=== PATIENT | male | born 1965 | race Caucasian/White ===

== ENCOUNTER 2024-06-23 11:05 | Emergency (ER) | payer BC ==
[2024-06-23 11:40] VITALS: RESP 18
--- NOTE | 2024-06-23 14:23 | ED ---
Skin/Abscess/FB HPI - General Chief complaint: Skin/Abscess/Foreign Body Stated complaint: Hemorrhoidal complications Time Seen by Provider: 06/23/24 14:00 Source: patient, RN notes reviewed Mode of arrival: ambulatory Limitations: no limitations - History of Present Illness Initial comments: 58-year-old male with history of hemorrhoids presenting for hemorrhoid x 4 days. States he is having painful bowel movements with bright red blood. He has been trying H prep with little relief. States the hemorrhoid prolapses but he is able to reduce it manually. Does not take any medications. Last bowel movement was this morning - Related Data Previous Rx's Medication Instructions Recorded Hydrocortisone Acetate [Anusol-Hc] 25 mg RECTAL BID PRN #1 suppositor 06/23/24 Hydrocortisone Acetate [Anusol-Hc] 25 mg RECTAL BID PRN #1 suppositor 06/23/24 Allergies Allergy/AdvReac Type Severity Reaction Status Date / Time Penicillins Allergy Rash/Hives Verified 06/23/24 11:33 Review of Systems ROS Statement: Those systems with pertinent positive or pertinent negative responses have been documented in the HPI. ROS Other: All systems not noted in ROS Statement are negative. Past Medical History Past Medical History: Hyperlipidemia Past Surgical History: Back Surgery Smoking Status: Light tobacco smoker Past Alcohol Use History: None Reported Past Drug Use History: None Reported General Exam Limitations: no limitations General appearance: alert, in no apparent distress Head exam: Present: atraumatic, normocephalic, normal inspection GI/Abdominal exam: Present: soft, normal bowel sounds. Absent: distended, tenderness, guarding, rebound, rigid Rectal exam: Present: normal inspection, normal rectal tone, other (Jackie RN was furnace worker for rectal exam). Absent: hemorrhoids (No visible external hemorrhoids, there is pain at 3:00 internally however no palpable masses. No rectal bleeding) Neurological exam: Present: alert, oriented X3 Psychiatric exam: Present: normal affect, normal mood Skin exam: Present: warm, dry, intact, normal color. Absent: rash Course Vital Signs 06/23/24 06/23/24 11:34 16:23 Temperature 97.8 F 97.7 F Pulse Rate 69 67 Respiratory 18 18 Rate Blood Pressure 144/75 148/87 O2 Sat by Pulse 98 98 Oximetry Medical Decision Making - Medical Decision Making Was pt. sent in by a medical professional or institution (MARTHA Al, FACILITIES SPECIALIST, urgent care, hospital, or fpc...) When possible be specific @ -No Did you speak to anyone other than the patient for history (EMS, parent, family, police, friend...)? What history was obtained from this source @ -No Did you review nursing and triage notes (agree or disagree)? Why? @ -I reviewed and agree with nursing and triage notes Were old charts reviewed (outside hosp., previous admission, EMS record, old EKG, old radiological studies, urgent care reports/EKG's, fpc records)? Report findings @ -No old charts were reviewed Differential Diagnosis (chest pain, altered mental status, abdominal pain women, abdominal pain men, vaginal bleeding, weakness, fever, dyspnea, syncope, headache, dizziness, GI bleed, back pain, seizure, CVA, palpatations, mental health, musculoskeletal)? @ -Differential GI Bleed: Esophageal varices, aortoenteric fistula, Jessica-Levine, gastritis, peptic ulcer disease, diverticulosis, inflammatory bowel disease, hemorrhoids, fissure, colitis, malignancy, Meckel's diverticulum, this is not meant to be an all- inclusive list. EKG interpreted by me (3pts min.). @ -None X-rays interpreted by me (1pt min.). @ -None done CT interpreted by me (1pt min.). @ -CT abdomen pelvis reveals prostate hypertrophy, otherwise no acute process U/S interpreted by me (1pt. min.). @ -None done What testing was considered but not performed or refused? (CT, X-rays, U/S, labs)? Why? @ -None What meds were considered but not given or refused? Why? @ -None Did you discuss the management of the patient with other professionals (professionals i.e. MARTHA Al, FACILITIES SPECIALIST, lab, RT, psych nurse, social organization professor, rheumatology specialist, teacher, state patrol officer, registered nurse hh case manager)? Give summary @ -No Was smoking cessation discussed for >3mins.? @ -No Was critical care preformed (if so, how long)? @ -No Were there social determinants of health that impacted care today? How? (Homelessness, low income, unemployed, alcoholism, drug addiction, transportat ion, low edu. Level, literacy, decrease access to med. care, usp, rehab)? @ -No Was there de-escalation of care discussed even if they declined (Discuss DNR or withdrawal of care, Hospice)? DNR status @ -No What co-morbidities impacted this encounter? (DM, HTN, Smoking, COPD, CAD, Cancer, CVA, ARF, Chemo, Hep., AIDS, mental health diagnosis, sleep apnea, morbid obesity)? @ -None Was patient admitted / discharged? Hospital course, mention meds given and route, prescriptions, significant lab abnormalities, going to OR and other pertinent info. @ -Discharge. This is a 58-year-old male presenting for rectal pain x 4 days with rectal bleeding. Patient does have history of hemorrhoids and states this feels similar. On rectal examination, there is no sign of external hemorrhoid or thrombosed hemorrhoid. CT abdomen pelvis obtained which revealed marked prostate hypertrophy, otherwise no acute process. Results discussed with patient. Symptoms are likely due to internal hemorrhoids, given Anusol suppositories for symptom relief. Given GI referral for further evaluation. Supportive care and return precautions discussed and patient is agreeable to plan. Case was discussed with my ED attending Dr. Arreola. Patient discharged in stable condition. Undiagnosed new problem with uncertain prognosis? @ -No Drug Therapy requiring intensive monitoring for toxicity (Heparin, Nitro, Insuli n, Cardizem)? @ -No Were any procedures done? @ -No Diagnosis/symptom? @ -Internal hemorrhoids Acute, or Chronic, or Acute on Chronic? @ -Acute Uncomplicated (without systemic symptoms) or Complicated (systemic symptoms)? @ -Uncomplicated Side effects of treatment? @ -No Exacerbation, Progression, or Severe Exacerbation? @ -No Poses a threat to life or bodily function? How? (Chest pain, USA, NV, pneumonia, PE, COPD, DKA, ARF, appy, cholecystitis, CVA, Diverticulitis, Homicidal, Suicidal, threat to staff... and all critical care pts) @ -No - Lab Data Result diagrams: 06/23/24 14:47 06/23/24 14:47 Lab Results 06/23/24 06/23/24 06/23/24 Range/Units 14:47 14:47 14:47 WBC 6.8 (3.8-10.6) k/uL RBC 5.35 (4.30-5.90) m/uL Hgb 16.3 (13.0-17.5) gm/dL Hct 48.4 (39.0-53.0) % MCV 90.3 (80.0-100.0) fL MCH 30.5 (25.0-35.0) pg MCHC 33.7 (31.0-37.0) g/dL RDW 12.7 (11.5-15.5) % Plt Count 235 (150-450) k/uL MPV 8.2 Neutrophils % 67 % Lymphocytes % 22 % Monocytes % 4 % Eosinophils % 4 % Basophils % 1 % Neutrophils # 4.6 (1.3-7.7) k/uL Lymphocytes # 1.5 (1.0-4.8) k/uL Monocytes # 0.3 (0-1.0) k/uL Eosinophils # 0.3 (0-0.7) k/uL Basophils # 0.0 (0-0.2) k/uL Sodium 138 (137-145) mmol/L Potassium 4.5 (3.5-5.1) mmol/L Chloride 104 (98-107) mmol/L Carbon Dioxide 29 (22-30) mmol/L Anion Gap 5 mmol/L BUN 14 (9-20) mg/dL Creatinine 1.08 (0.66-1.25) mg/dL Est GFR (CKD-EPI)AfAm 86 (>60 ml/min/1.73 sqM) Est GFR (CKD-EPI)NonAf 75 (>60 ml/min/1.73 sqM) Glucose 92 (74-99) mg/dL Plasma Lactic Acid Mark 1.0 (0.7-2.0) mmol/L Calcium 9.4 (8.4-10.2) mg/dL Total Bilirubin 0.7 (0.2-1.3) mg/dL AST 25 (17-59) U/L ALT 19 (4-49) U/L Alkaline Phosphatase 52 (38-126) U/L Total Protein 6.8 (6.3-8.2) g/dL Albumin 4.3 (3.5-5.0) g/dL Disposition Clinical Impression: Internal hemorrhoid Disposition: HOME SELF-CARE Condition: Stable Instructions (If sedation given, give patient instructions): Hemorrhoids (ED) Additional Instructions: Take Prescriptions: Hydrocortisone Acetate [Anusol-Hc] 25 mg RECTAL BID PRN #1 suppositor PRN Reason: Hemorrhoids Hydrocortisone Acetate [Anusol-Hc] 25 mg RECTAL BID PRN #1 suppositor PRN Reason: Hemorrhoids Is patient prescribed a controlled substance at d/c from ED?: No Referrals: Basilio Brooks DO [Primary Care Provider] - 1-2 days Nadira Hernandez MD [STAFF PHYSICIAN] - 1-2 days Time of Disposition: 16:13
[2024-06-23 14:57] LABS: Basophils % (A) 1 %; Eosinophils # (A) 0.3 k/uL (0-0.7); Eosinophils % (A) 4 %; HCT 48.4 % (39.0-53.0); HGB 16.3 gm/dL (13.0-17.5); Lymphocytes # (A) 1.5 k/uL (1.0-4.8); Lymphocytes % (A) 22 %; MCH 30.5 pg (25.0-35.0); MCHC 33.7 g/dL (31.0-37.0); MCV 90.3 fL (80.0-100.0); Mean Platelet Volume 8.2; Monocytes # (A) 0.3 k/uL (0-1.0); Monocytes % (A) 4 %; Neutrophils # (A) 4.6 k/uL (1.3-7.7); Neutrophils % (A) 67 %; Platelet Count 235 k/uL (150-450); RBC 5.35 m/uL (4.30-5.90); RDW 12.7 % (11.5-15.5); WBC 6.8 k/uL (3.8-10.6)
[2024-06-23 15:08] LABS: ALT 19 U/L (4-49); AST 25 U/L (17-59); African American GFR (CKD) 86 (>60 ml/min/1.73 sqM); Albumin 4.3 g/dL (3.5-5.0); Alkaline Phosphatase 52 U/L (38-126); Anion Gap 5 mmol/L; Blood Urea Nitrogen 14 mg/dL (9-20); Calcium 9.4 mg/dL (8.4-10.2); Carbon Dioxide 29 mmol/L (22-30); Chloride 104 mmol/L (98-107); Glucose 92 mg/dL (74-99); Non-African American GFR(CKD) 75 (>60 ml/min/1.73 sqM); Potassium 4.5 mmol/L (3.5-5.1); Sodium 138 mmol/L (137-145); Total Bilirubin 0.7 mg/dL (0.2-1.3); Total Protein 6.8 g/dL (6.3-8.2)
--- NOTE | 2024-06-23 15:38 | CT ---
EXAMINATION TYPE: CT abdomen pelvis w con DATE OF EXAM: 06/23/2024 COMPARISON: None CLINICAL INDICATION: Male, 58 years old with history of rectal pain; PHH, pt c/o painful, bleeding he morrhoid x few days TECHNIQUE: Performed without Oral Contrast and with IV Contrast, patient injected with 100 ml mL of Isovue 370. CT DLP: 1246.2 mGycm Automated exposure control for dose reduction was used. FINDINGS: The lung bases are clear. The gallbladder is normal without distention, wall thickening, pericholecystic fluid or gallstones. T here is no biliary ductal dilatation. There is no focal mass or organomegaly involving the liver, pancreas, spleen or adrenal glands. There is no solid renal mass or hydronephrosis and there is homogeneous contrast enhancement of the r enal parenchyma. The caliber the abdominal aorta is normal is no retroperitoneal adenopathy or hemorr clark. The bowel loops are normal in caliber and there is no evidence of dilatation or obstruction. No infla mmatory changes are identified in the bowel wall or mesentery. There is no free intraperitoneal air or fluid. No pelvic mass, free fluid, abscess or adenopathy. There is marked prostatic hypertrophy The osseous structures and soft tissues are intact. IMPRESSION: Marked prostatic hypertrophy with no other significant abnormality seen. [facility], , 06/23/2024 3:36 PM
[2024-06-23] MEDS ORDERED: MORPHINE SULFATE 4 MG/ML SYRINGE IM STA (15:56)
[2024-06-23] MEDS ORDERED: ACET/COD 300 MG/30 MG STARTER PACK 6 TAB BTL PO STA (15:56)
[2024-06-23] MEDS: KETOROLAC 15 MG/ML 1 ML VIAL IM STA (16:14)
[2024-06-23 16:24] VITALS: BP 148/87; PULSE 67; TEMP 97.7
== END 2024-06-23 16:27 | disposition home or self-care (01) ==
LOC: EC 11:05
CPT/HCPCS: 36415; 74177; 80053; 83605; 85025; 96374; 99284

== ENCOUNTER → 2024-11-14 | Outpatient (CLI) | payer BC ==
--- NOTE | 2024-11-14 15:09 | CA ---
Transthoracic Echo Report Name: Sim Vanegas Age: 59 Gender: M : 1965 Exam Date: 11/14/2024 08:37 Exam Location: [facility] Ht (in): 73 Wt (lb): 218 Ordering Physician: Basilio Brooks DO Attending/Referring Phys: Rossi Roca PAC Senior Officer Meg Hidalgo RDCS Procedure CPT: Indications: Z13.6 ENCOUNTER FOR SCREENING FOR CARDIOVASCULAR D Cardiac Hx: Technical Quality: Good Contrast 1: Total Dose (mL): Contrast 2: Total Dose (mL): MEASUREMENTS (Male / Female) Normal Values 2D ECHO LV Diastolic Diameter PLAX 5.5 cm 4.2 - 5.9 / 3.9 - 5.3 cm LV Systolic Diameter PLAX 3.9 cm IVS Diastolic Thickness 0.9 cm 0.6 - 1.0 / 0.6 - 0.9 cm LVPW Diastolic Thickness 1.0 cm 0.6 - 1.0 / 0.6 - 0.9 cm LV Relative Wall Thickness 0.3 LVOT Diameter 2.3 cm Aortic Root Diameter 3.4 cm LV Diastolic Volume MOD BP 118.3 cm??? 67 - 155 / 56 - 104 cm??? LV Systolic Volume MOD BP 48.0 cm??? 22 - 58 / 19 - 49 cm??? LV Ejection Fraction MOD BP 59.4 % >= 55 % LV Cardiac Index MOD BP 2069.2 cm???/min???m??? LV Diastolic Volume MOD 4C 117.2 cm??? LV Systolic Volume MOD 4C 46.4 cm??? LV Ejection Fraction MOD 4C 60.4 % LV Cardiac Index MOD 4C 2085.2 cm???/min???m??? LV Diastolic Length 4C 8.3 cm LV Systolic Length 4C 6.8 cm LV Diastolic Volume MOD 2C 117.5 cm??? LV Systolic Volume MOD 2C 49.5 cm??? LV Ejection Fraction MOD 2C 57.9 % LV Cardiac Index MOD 2C 2001.2 cm???/min???m??? LV Diastolic Length 2C 8.6 cm LV Systolic Length 2C 6.9 cm Ascending Aorta Diameter 3.5 cm DOPPLER AV Peak Velocity 123.4 cm/s AV Peak Gradient 6.1 mmHg AV Mean Velocity 86.4 cm/s AV Mean Gradient 3.3 mmHg AV Velocity Time Integral 23.1 cm LVOT Peak Velocity 98.6 cm/s LVOT Peak Gradient 3.9 mmHg LVOT Velocity Time Integral 19.2 cm LVOT Stroke Volume 78.5 cm??? LVOT Stroke Volume Index 35.2 ml/m??? LVOT Cardiac Index 2311.3 cm???/min???m??? AV Area Cont Eq vti 3.4 cm??? AV Area Cont Eq pk 3.3 cm??? Mitral E Point Velocity 43.7 cm/s Mitral A Point Velocity 43.1 cm/s Mitral E to A Ratio 1.0 MV Deceleration Time 235.0 ms MV E' Velocity 6.2 cm/s Mitral E to MV E' Ratio 7.0 PV Peak Velocity 112.0 cm/s PV Peak Gradient 5.0 mmHg FINDINGS Left Ventricle Left ventricular ejection fraction is estimated at 55-60 %. Left ventricular cavity size normal. Left ventricular wall thickness normal. No obvious regional wall motion abnormalities. Right Ventricle Normal right ventricular size and function. Unable to estimate the right ventricular systolic pressure. Right Atrium Normal right atrial size. Left Atrium Normal left atrial size. Mitral Valve Structurally normal mitral valve. No mitral stenosis, regurgitation or prolapse. Aortic Valve Trileaflet aortic valve. No aortic valve stenosis or regurgitation. Tricuspid Valve Structurally normal tricuspid valve. No tricuspid stenosis. No tricuspid regurgitation. Pulmonic Valve Structurally normal pulmonic valve. No pulmonic stenosis. Mild pulmonic regurgitation. Pericardium No pericardial effusion. Aorta Normal size aortic root and proximal ascending aorta. CONCLUSIONS Normal LV size and systolic function. No significant abnormality on the Doppler exam. No pulmonary hypertension. Right-sided pressures were not well quantified. Previewed by: Dr. Vida Pearl MD (Electronically Signed) Final Date: 14 November 2024 15:08
--- NOTE | 2024-11-14 15:21 | CA ---
Exercise Stress Test Report Name: Sim Vanegas Exam Date: 11/14/2024 09:02 Exam Location: [facility] Ht (in): 72 Wt (lb): 218 BSA: 2.21 Ordering Phys: Basilio Brooks DO Referring Phys: Rossi Roca Technologist: Autumn Vang RDCS Age: 59 Gender: M : 1965 Procedure CPT: Indications: Z13.6 ENCOUNTER FOR SCREENING FOR CARDIOVASCULAR D ICD-10 Codes: Patient History: Hyperlipidemia and family history of heart disease. Medications: TAMSULOSIN,,,, LOVASTATIN,,, Meds past 24 hrs: Pretest Chest Pain: STRESS TEST Luther Protocol Exercise Duration (min:sec): 10:[address] Depressions (mm): Angina Score: Melvin Score: Resting HR (bpm): 64 Peak HR (bpm): 143 Resting BP (mmHg): 128 / 88 Peak BP (mmHg): 172 / 73 MPHR: 160 Target HR: 136 % MPHR: 89 METS: 12.1 Total Dose: Peak Dose: Atropine: Double Product: 71840 BP Response: Stress Termination: TARGET HR REACHED/MAX EXERTION Stress Symptoms: NO SYMPTOMS Stress Summary: ECG ANALYSIS Resting ECG: Stress ECG: CONCLUSIONS Baseline EKG revealed normal sinus rhythm without significant ST-T changes. Patient walked for 10 minutes on a standard Luther protocol and achieved a maximal heart rate of 142 bpm which is more than 85% of predicted maximal. Patient developed some fatigue and shortness of breath no angina. There was no significant arrhythmia and there were no ST segment changes to indicate ischemia. This is a negative stress test with good exercise capacity. No evidence suggest ischemia Dr. Vida Pearl MD (Electronically Signed) Final Date: 14 November 2024 15:20
== END | disposition home or self-care (01) ==
LOC: RADECHMAIN 08:21
PROVIDERS: ATTEND Family Medicine
DX: Z13.6 Encounter for screening for cardiovascular disorders (principal); I37.1 Nonrheumatic pulmonary valve insufficiency; E78.5 Hyperlipidemia, unspecified; Z82.49 Family history of ischemic heart disease and other diseases of the circulatory system
CPT/HCPCS: 93017; 93306